=== PATIENT | female | born 1980 | race Caucasian/White ===

== ENCOUNTER 2017-04-08 10:05 | Emergency (ER) | payer MEDICAID, OTHER ==
[2017-04-08 10:21] VITALS: BP 143/86
[2017-04-08] MEDS ORDERED: Diphtheria,Pertussis(Acell),Tetanus Vaccine 0.5 ML Syringe IM ONE (10:23)
--- NOTE | 2017-04-08 10:24 | EDM.PDOC ---
ED HPI GENERAL MEDICAL PROBLEM - General Chief Complaint: Bite:Animal, Insect Stated Complaint: DOG BITE/RT HAND WRIST Time Seen by Provider: 04/08/17 10:24 Source of Information: Reports: Patient History Limitations: Reports: No Limitations - History of Present Illness INITIAL COMMENTS - FREE TEXT/NARRATIVE: HISTORY AND PHYSICAL: []36-year-old female presents after her friend's dog bit her on the hand and forearm History of Present Illness: Patient was trying to break up her dog and her friend's dog and her arm got in the way []1 year ago her friend adopted this dog is a rescue dog and dog was "fixed" They're looking for papers/as this was a rescue dog expect that this is covered by his vaccinations Review of Systems: As per history of present illness and below otherwise all systems reviewed and negative. Past medical history: As per history of present illness and as reviewed below otherwise noncontributory. Surgical history: As per history of present illness and as reviewed below otherwise noncontributory. Social history: No reported history of drug or alcohol abuse. Family history: As per history of present illness and as reviewed below otherwise noncontributory. Physical exam: Alert and oriented female who is speaking in full sentences quite animated. HEENT: Atraumatic, normocehpalic, pupils reactive, negative for conjunctival pallor or scleral icterus, mucous membranes moist, throat clear, neck supple, nontender, trachea midline. Lungs: Clear to auscultation, breath sounds equal bilaterally, chest non tender. Heart: S1S2, regular, negative for clicks, rubs, or JVD. Abdomen: Soft, nondistended, nontender. Negative for masses or hepatossplenmegaly. Negative for costovertebral tenderness. Pelvis: Stable nontender. Genitourinary: Deferred. Rectal: Deferred Extremities: Atraumatic, negative for cords or calf pain. Neurovascular unremarkable. Neuro: Awake, alert, oriented. Cranial nerves II through XII unremarkable. Cerebellum unremarkable. Motor and sensory unremarkable throughout. Exam nonfocal. Patient is requesting a week off from work will give her light duty for 2-3 days Police were notified and have interviewed patient Diagnostics: [X-rays and forearm for fracture or dislocation] Therapeutics: []Adacel Impression: [Dog bite] Plan: [Augmentin 875 twice a day 10 days Keep area clean and dry may use antibiotic ointment to this area available over- the-counter] Definitive disposition and diagnosis as appropriate pending reevaluation and review of above. Onset: Today, Sudden Duration: Minutes: (45) Location: Reports: Upper Extremity, Right Right Arm Pain Score (Numeric/FACES): 6 - Related Data Allergies Allergy/AdvReac Type Severity Reaction Status Date / Time No Known Allergies Allergy Verified 04/08/17 10:21 Home Meds: Home Meds Amoxicillin/Potassium Clav [Augmentin 875-125 Tablet] 1 each PO BID #20 tablet 04/08/17 [Rx] ED ROS GENERAL - Review of Systems Review Of Systems: ROS reveals no pertinent complaints other than HPI. ED EXAM, ANIMAL BITE - Physical Exam Exam: See Below (See dictation) Course - Vital Signs Last Recorded V/S: Last Vital Signs Temp 36.6 C 04/08/17 10:17 Pulse 108 H 04/08/17 10:17 Resp 16 04/08/17 10:17 BP 143/86 H 04/08/17 10:17 Pulse Ox 99 04/08/17 10:17 - Orders/Labs/Meds Orders: Active Orders 24 hr Category Date Time Status Vaccines to be Administered [RC] PER UNIT ROUTINE Care 04/08/17 10:23 Active Meds: Medications Discontinued Medications Generic Name Dose Route Start Last Admin Trade Name Jenaro PRN Reason Stop Dose Admin Bacitracin 1 dose 04/08/17 10:58 04/08/17 11:04 Bacitracin Oint 1 Gm TOP 04/08/17 10:59 1 dose ONETIME ONE Administration Diphtheria/Tetanus/Acell Pertussis 0.5 ml 04/08/17 10:23 04/08/17 10:59 Adacel IM 04/08/17 10:24 0.5 ml .ONCE ONE Administration Departure - Departure Time of Disposition: 11:13 Disposition: Home, Self-Care 01 Condition: Good Clinical Impression: Dog bite of hand without complication Qualifiers: Encounter type: initial encounter Laterality: right Qualified Code(s): S61.451A - Open bite of right hand, initial encounter; W54.0XXA - Bitten by dog , initial encounter - Discharge Information Prescriptions: Amoxicillin/Potassium Clav [Augmentin 875-125 Tablet] 1 each PO BID #20 tablet Instructions: Animal Bite, [id number] Referrals: PCP,None [Primary Care Provider] - Forms: ED Department Discharge Additional Instructions: The following information is given to patients seen in the emergency department who are being discharged to home. This information is to outline your options for follow-up care. We provide all patients seen in our emergency department with a follow-up referral. The need for follow-up, as well as the timing and circumstances, are variable depending upon the specifics of your emergency department visit. If you don't have a primary care physician on staff, we will provide you with a referral. We always advise you to contact your personal physician following an emergency department visit to inform them of the circumstance of the visit and for follow-up with them and/or the need for any referrals to a consulting specialist. The emergency department will also refer you to a specialist when appropriate. This referral assures that you have the opportunity for followup care with a specialist. All of these measure are taken in an effort to provide you with optimal care, which includes your followup. Under all circumstances we always encourage you to contact your private physician who remains a resource for coordinating your care. When calling for followup care, please make the office aware that this follow-up is from your recent emergency room visit. If for any reason you are refused follow-up, please contact the [facility] emergency department at and asked to speak to the emergency department charge nurse. follow-up in the next week with your provider so that this can be reevaluated No fractures were noted Prescription has been electronically sent to your pharmacy for Augmentin 875 mg 1 tablet twice daily for 10 days - My Orders Last 24 Hours: My Active Orders 04/08/17 10:23 Vaccines to be Administered [RC] PER UNIT ROUTINE - Assessment/Plan Last 24 Hours: My Active Orders 04/08/17 10:23 Vaccines to be Administered [RC] PER UNIT ROUTINE
[2017-04-08] MEDS ORDERED: Bacitracin Oint 1 GM U/D Packet TOP ONE (10:58)
--- NOTE | 2017-04-08 11:09 | CR ---
EXAMINATION: Right hand and right forearm HISTORY: Pain COMPARISON: None TECHNIQUE: 2 views of the right hand and 2 views of the right forearm FINDINGS: There is no acute osseous abnormality, dislocation, or fracture. Bone mineralization and j oint spaces appear preserved. An old healed ulnar styloid injury is noted. The radiocarpal and radiocapitellar alignment is preserved. No elbow joint effusion. IMPRESSION: No acute osseous abnormality identified.
== END 2017-04-08 11:27 | disposition home or self-care (01) ==
LOC: MW.ED 10:05
DX: S61.451A Open bite of right hand, initial encounter (principal); Z23 Encounter for immunization; W54.0XXA Bitten by dog, initial encounter
CPT/HCPCS: 73090-26-RT; 73090-RT; 73120-26-RT; 73120-RT; 90471; 90715; 99283; 99283-25